=== PATIENT | female | born 1985 | race Caucasian/White ===

== ENCOUNTER 2024-04-28 21:53 | Emergency (ER) | payer BC, OTHER, SELFPAY ==
--- OUTSIDE RECORDS SUMMARY | 2024-04-28 21:55 | XMS_ITS | Clinical Summary ---
Author Organization [facility] Address [address] [place] [address] Care Team Providers Care Audio Narrator Name Role Phone Found, No Pcp MD Primary Care Provider Unavailab le Source Comments You are receiving this document as you are listed as the primary care provider,follow-up provider, or the patient has been referred to you for consultation.This is in compliance with the Medicare and[facility] EHR Incentive Program,which states Providers who transition their patient to another setting of careor provider of care or refers their patient to another provider of care shouldprovide summary care record for each transition of care or referral. [employer] Allergies No known active allergies Medications unknown medication Indications: PN: 10/26/19 07 Active Norgestimate-Eth Estradiol (AKA ORTHO-CYCLEN) 0.25-35 MG-MCG tabletIndications :General counseling for initiation of other contraceptive measures Take 1 tablet by mouth daily (every 24 hours). Follow package directions Indications: CONTRACEPTION 84 tablet 4 10/22/19 11 Active clindamycin (AKA CLEOCIN T) 1 % lotionIndications :Acne Apply topically 2 times daily. 60 mL 11 10/22/19 11 Active Norgestimate-Eth Estradiol (AKA ORTHO-CYCLEN) 0.25-35 MG-MCG tablet Take 1 tablet by mouth daily (every 24 hours). 84 tablet 0 02/03/20 15 Active Additional Information Patient not taking.Reported on 03/04/2020 Norgestimate-Ethi nyl Estradiol (ORTHO TRI-CYCLEN LO) 0.18/0.215/0.25 MG-25 MCG tablet Take 1 tablet by mouth daily (every 24 hours). LW Addl Instr:Follow package directions. 84 3 08/11/19 06 006 Discontin ued(Thera py completed ) Active Problems Problem Noted Date Diagnosed Date Morbid obesity 03/03/2014 Immunizations Immunization Administration Dates Next Due 4vHPV (Gardasil) 07/07/2009 DTP 08/08/1988, 6,03/15/1984,1983,1983 HepB Adult (Engerix-B, 20+ y rs, 3 dose series) 06/04/1996,11/29/1995,06/19/1995 MMR 06/19/1995,02/25/1985 OPV, Trivalent (Orimune or tOPV) 989,07/11/1985,01/26/1984,1983 Td 11/29/1995 Family History Medical History Relation Name Comments Diabetes Father High Cholesterol Mother Diabetes Brother Relation Name Status Comments Father Alive Mother Alive Brother Alive Son Alive Social History Tobacco Use Types Packs/Day Years Used Date Smoking Tobacco: Never Smokeless Tobacco: Never Alcohol Use Standard Drinks/Week Comments Yes 1 (1 standard drink = 0.6 oz pure alcohol) Alcoholic Drinks/day: Freq:2-4/Month ; Comments No Sex and Gender Information Value Date Recorded Sex Assigned at Not on file Legal Sex Female 7:17 AM CDT Gender Identity Not on file Sexual Orientation Not on file 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 Not on file Not on file Not on file Last Filed Vital Signs Vital Sign Reading Time Taken Comments Blood Pressure 141/90 04/16/2023 8:36 AM HATCHERY HELPER Pulse 86 04/16/2023 8:36 AM HATCHERY HELPER Temperature 36.9 C (98.5 F) 04/16/2023 8:36 AM HATCHERY HELPER Respiratory Rate 16 04/16/2023 8:36 AM HATCHERY HELPER Oxygen Saturation 100% 04/16/2023 8:36 AM HATCHERY HELPER Inhaled Oxygen Concentration - - Weight 134.7 kg (297 lb) 04/06/2020 11:41 AM HATCHERY HELPER Height 177.8 cm (5' 10) 04/06/2020 11:41 AM HATCHERY HELPER Body Mass Index 42.62 04/06/2020 11:41 AM HATCHERY HELPER Plan of Treatment Health Maintenance Due Date Last Done Comments Hep C Screening (Preventive Services) 1983 Mammogram 1983 Adult Preventive Visit 09/06/2001 HPV Vaccine (2 - 3-dose series) 08/04/2009 07/07/2009 Cervical Cancer Screening Due 03/04/2014 03/03/2014, 07/07/2009, 08/21/2007, Additional history exists COVID-19 Vaccine ( season) 2023 Influenza (#1) 2023 12/27/2017, 100 02/2016, 11/26/2015, Additional history exists DTaP/Tdap/Td (9 - Tdap) 09/23/2025 09/24/19 16, 11/29/1995, 11/29/1995, Additional history exists Zoster/Shingles (1 of 2) 09/06/2033 IPV (Polio) Completed 09/27/1994, 07/27, 07/11/1985, Additional history exists HepB Completed 06/04/1996, 04/1995, 06/19/1995 HIV Screening (Preventive Services) Completed 01/30/2006 HepA Aged Out No longer eligi ble based on patient's age to complete this topic Hib Aged Out No longer eligi ble based on patient's age to complete this topic MCV4 Aged Out No longer eligi ble based on patient's age to complete this topic Meningococcal B Aged Out No longer el igible based on patient's age to complete this topic Pneumococcal Aged Out No longer eligi ble based on patient's age to complete this topic Procedures Procedure Name Priority Date/Time Associated Diagnosis Comments ANATOMICAL PATH LIQUID BASED Routine 03/03/2014 8:42 AM HATCHERY HELPER HIV ANTIBODY Routine 01/30/2006 3:05 PM HATCHERY HELPER from Last 3 Months or Most Recently Relevant to Health Maintenance Results * Pap Smear (03/03/2014 8:42 AM HATCHERY HELPER) 03/03/2014 8:42 AM HATCHERY HELPER Narrative HP CONVERSION - 03/05/2014 11:09 AM HATCHERY HELPER Performed at [facility], [address] [place] [id number] FINAL GYNECOLOGICAL CYTOLOGY REPORT Pathology #: [id number] Date Obtained: 03/03/2014 Date Received: 03/04/2014 INTERPRETATION/RESULTS: Negative for Intraepithelial Lesion or Malignancy. SPECIMEN ADEQUACY: Satisfactory for Evaluation. No endocervical cells/transformation zone component present. Verified on 03/05/2014 by LINK BOSCH(ASCP) (electronic signature) CLINICAL NOTES: Abnormal bleeding: No, LMP: 02/09/14, Hormonal TX: No, Other TX: LEEP 2006 LIQUID BASED PAP SMEAR SPECIMEN TYPE: CERVICAL & HPV REGARDLESS OF PAP RESULT PLEASE NOTE: The pap smear is a screening test designed to aid in the detection of cervical cancer and its precursor lesions. It is not a diagnostic procedure and should not be used as the sole means of detecting cervical cancer. Both false-positive and false-negative reports may occur. End of Report Agatha Kevin PA-C LAB_1 Final Resu lt HP CONVERSION * HIV Antibody (01/30/2006 3:05 PM HATCHERY HELPER) Pathologist [facility] HIV 1/HIV 2 Non Reac Non Reac HP CONVERSION 01/30/2006 3:05 PM HATCHERY HELPER Cristina Preciado LAB_1 Final Result HP CONVERSION from Last 3 Months or Most Recently Relevant to Health Maintenance Insurance BC OUT OF STATE [facility] [address] Care Teams Audio Narrator Relationship Specialty Start Date End Date Found, No Pcp, [address] [place] [address] PCP - General 09/24/18
[2024-04-28 21:56] VITALS: BP 169/92; PULSE 103; RESP 18; TEMP 36.9; O2SAT 99; BMI 43.0
--- OUTSIDE RECORDS SUMMARY | 2024-04-28 22:54 | XMS_ITS | Patient Health Record ---
Author Organization [facility] Address [address] [place] [address] Care Team Providers Care Precision Machine Operator Name Role Phone Jacquie Lang Primary Care Provider [phone] Allergies No Known Allergies Reason For Referral No Information Medications Medication SIG (Take, Route, Frequency, Duration) Notes Start Date End Date Status Turmeric Active Vitamin D Active NuvaRing Active EluRyng 0.12-0.015 MG/24HR _insert 1 RIN G VAGINALLY DIRECTED. REMOVE AFTER 3 WEEKS & WAIT 7 DAYS BEFORE INSERTING A NEW RING for 28 Active Social History Tobacco Use: Social History Observation Description Date Details (start date - stop date) Never Smoker NA - NA Tobacco Use/Smoking Question Answer Notes Are you a nonsmoker Alcohol Screen (Audit-C) Question Answer Notes Did you have a drink containing alcohol in the p ast year? No Points 0 Interpretation Negative Problems Problem Type SNOMED Code ICD Code Onset Dates Problem Status W/U Status Risk Notes Problem [id number] Adult BMI 38.0-38.9 kg/sq m (Z68.38) Active confirmed Plan Of Treatment No Information Insurance Providers Payer Name Payer Address Payer Phone Subscriber Number Group Number Insured Name Patient Relationship to Insured Coverage Start Date Coverage End Date BCBS - (Client Bill) [address] [place] [address] [id number] Shlomo Castanon Mary Anne Self - patient is the insured (Ins Bill) [address] [place], [place] [id number] Shlomo Lg Mary Anne Self - patient is the insured Medical (General) History Medical History History ICD Code Chicken Pox Surgical History Surgery Date(Month/Year) [facility] 2006
--- OUTSIDE RECORDS SUMMARY | 2024-04-28 22:54 | XMS_ITS | Clinical Summary ---
Author Organization [facility] Address [address] [place] [address] Care Team Providers Care Rocket Engine Component Mechanic Name Role Phone Pcp, No Primary Care Provider Unavailabl e Allergies Active Allergy Reactions Criticality Noted Date Comments Nickel Rash 04/15/2015 Medications cholecalciferol (VITAMIN D) 1,000 unit capsule Take 1 capsule by mouth once daily. 0 6 Active multivitamin-mine rals therapeutic tablet Take 1 tablet by mouth once daily. Active magnesium oxide (MAG-OX 400) 400 mg tablet Take 200-400 mg by mouth once daily. Active WalkerIndications :Acute bilateral low back pain with bilateral sciatica Rolling Walker for home use. 1 Device 8 Active etonogestrel-ethi nyl estradiol (NUVARING) vaginal ringIndications:E ncounter for initial prescription of vaginal ring hormonal contraceptive INSERT 1 RING VAGINALLY AND LEAVE IN PLACE FOR 3 CONSECUTIVE WEEKS, REMOVE 1WK, REPEAT 3 ring 9 Active calcium carbonate (CALTRATE) 600 mg calcium (1,500 mg) tablet Take 600 mg by mouth 2 times daily with meals. Active Active Problems Problem Noted Date Diagnosed Date Morbid obesity with BMI of 40.0-44.9, adult 02/26 Acute bilateral low back pain with bilateral sci atica 03/08/2017 Cervical high risk HPV (human papillomavirus) te st positive 01/05/2016 Overview (01/10/2018): 2007 LEEP 01/05/2016 NIL/HPV+, HPV 16/18 Negative 08/23/2016 [place]: Benign ECC 12/27/2017 NIL/HPV Negative ASCCP recommends: History of CIN2 - CIN3: Pap and HPV every 3 years for 20 years. Plan: Pap/HPV due 12/2020 Premature rupture of membran es with onset of labor within 24 hours of rupture 11/25/2015 (normal spontaneous vaginal delivery) 11/24 Obesity affecting in third trimester 0 05/21/2015 care, subsequent 04/15/2015 Overview (11/18/2015): Call [facility] Pitocin induction scheduled for 12/01/15 BMI >30 & first degree relative Type 2 diabetic (mother) Abnormal Pap X 1 - LEEP X 1 2006 Chlamydia X 1 - Treated 2005 Genetic testing: CF, Quad, FTS will advise office of decision. Influenza vaccine accepted this season. Obesity, unspecified 08/31/2006 Resolved Problems Problem Noted Date Diagnosed Date Resolved Date History of loop electrosurgi fawn excision procedure (LEEP) of cervix affecting in third trimester 05/21/2015 01/10/2018 Disorder of stomach function and feeding problems in 09/02/2006 04/15/2015 Supervision of normal first 08/31/2006 09/02/2006 Normal delivery 08/31/2006 09/02/2006 Immunizations Name Administration Dates Next Due DT (Age < 7 years) 11/29/1995 DTP 08/08/1988, 6,03/15/1984,01/26/1984, DTaP 09/27/1994 Hepatitis B (Adult) 06/04/1996,11/29/1995,1995 Human Papilloma Virus Vaccine 07/07/2009 Influenza Virus, Unspecified 11/26/2016 Influenza, IIV4 12/27/2017,11/26/2015,04/15/2015 MMR 06/19/1995,02/25/1985 Oral Polio Vaccine 09/27/1994, 9,07/11/1985,01/26/1984, Td (Age >=7 Years) 11/29/1995 Tdap 09/24/2015 Family History Medical History Relation Name Comments Good Health Brother Diabetes Father Heart Disease Father [place] Other Maternal Grandfather Other Maternal Grandmother Good Health Mother Other Paternal Grandfather Good Health Paternal Grandmother Good Health Son Relation Name Status Comments Brother Alive Father Alive Maternal Grandfather Maternal Grandmother Mother Alive Paternal Grandfather Alive Paternal Grandmother Alive Son Alive Social History Tobacco Use Types Packs/Day Years Used Date Smoking Tobacco: Never Smokeless Tobacco: Never Tobacco Cessation:Counseling Given: Yes Alcohol Use Standard Drinks/Week Comments Yes 0 (1 standard drink = 0.6 oz pur e alcohol) 1 drink a month Comments No Sex and Gender Information Value Date Recorded Sex Assigned at Not on file Legal Sex Female 7:19 AM TANK SETTER Gender Identity Not on file Sexual Orientation Not on file Occupation Industry Job Start Date Job End Date Not on file Not on file Not on file Not on file Obstetrics History Para Term AB IAB SAB Ectopic Multiple Livin g Live Births 2 2 2 0 0 0 0 0 0 2 2 Date Outcome GA Total Labor Labor/2nd/3rd Weight Sex Type Anes PTL Magda A1 A5 Name Clin 2006 Term 42w 0d 3.52 kg (7 lb 12 oz) M Vag Epidur al N Livin g Anil Complications:None 2015 Term 38w 0d 3.8 kg (8 lb 5.9 oz) M Vag Epidur al N Livin g 8 10 [place], BB FATUMA Ros[place] y Complications:None Delivery Location:[facility] Last Filed Vital Signs Vital Sign Reading Time Taken Comments Blood Pressure 149/79 10/18/2019 12:59 AM CDT Pulse 76 10/18/2019 12:59 AM CDT Temperature 36.4 C (97.5 F) 10/17/2019 10:20 PM CDT Respiratory Rate 16 10/18/2019 12:59 AM CDT Oxygen Saturation 96% 10/18/2019 12:59 AM CDT Inhaled Oxygen Concentration - - Weight 149.7 kg (330 lb) 10/17/2019 10:29 PM CDT Height 177.8 cm (5' 10) 10/17/2019 10:29 PM CDT Body Mass Index 47.35 10/17/2019 10:29 PM CDT Plan of Treatment Health Maintenance Due Date Last Done Comments Hepatitis C screening for age 18-79 09/06/2001 BMI (ht and wt on same day) for age 18+ 12/27/2018 12/27/2017, 08/23/2016, 11/24/2015, Additional history exists Depression screening for age 12+ 12/27/2018 12/27/2017, 08/23/2016 Pap test for age 21-65 12/27/2020 8, 12/27/2017, 01/05/2016, Additional history exists COVID-19 vaccine series ( season) 2023 Influenza for age 9-49 10/28/2023 8, 11/26/2016, 11/26/2015, Additional history exists Tetanus booster 09/23/2025 09/24/2015, 11/29/1995 HIV for age 15-65 Completed 04/15/2015 Tdap Completed 09/24/2015 Pneumococcal series for age 6-49 Aged Out No longer eligible based on patient's age to complete this topic Procedures Procedure Name Priority Date/Time Associated Diagnosis Comments TRANSIT DRIVER THIN PREP PAP SCREEN IMAGED Routine 12/27/2017 9:00 AM CDT Screening for cervical cancer ANTI HIV 1/2 Routine 04/15/2015 12:16 PM TANK SETTER care, subsequent , unspecified trimester from Last 3 Months or Most Recently Relevant to Health Maintenance Results * TRANSIT DRIVER THIN PREP PAP SCREEN IMAGED (12/27/2017 9:00 AM CDT) Case Report Gynecologic Cytology Report Case: [id number] Authorizing Provider: Caprice Farooq DO Collected: 12/27/2017 0900 Ordering Location: [facility] Received: 12/27/2017 [facility] First Screen: Reba Franco Rescreen: iNssa Pandya Specimen: TRANSIT DRIVER ThinPrep Vial Screening, Cervical 01/08/2018 12:48 PM TANK SETTER [facility] ENTRAL LABORATORY INTERPRETATION/ RESULT NEGATIVE FOR INTRAEPITHELIAL LESION OR MALIGNANCY (NIL) (none) 01/08/2018 12:48 PM [facility]ANK [facility]TER [facility] IMEN ADEQUACY Satisfactory for evaluation Endocervical component present 01/08/2018 12:48 PM TANK SETTER [facility] HPV REQUEST HPV and PAP 01/08/2018 12:48 PM TANK SETTER [facility] Date of LMP 12/02/17 01/08/2018 12:48 PM TANK SETTER [facility] Last Pap Date 01/05/16 01/08/2018 12:48 PM TANK SETTER [facility] Last Pap Result NIL 8 12:48 PM TANK SETTER [facility] Abnormal Pap or [place] Bx in last 5 years Yes 01/08/2018 12:48 PM TANK SETTER [facility] Menstrual Status Regular Periods 01/08/2018 12:48 PM TANK SETTER [facility] [place] Bx Done Today No 01/08/2018 12:48 PM TANK SETTER [facility] Additional Information None given 01/08/2018 12:48 PM TANK SETTER [facility] Automated Review Successful 01/08/2018 12:48 PM TANK SETTER [facility] Comment:Specimen processed s uccessfully by automated quality officer device, ThinPrep Imaging System, [employer] ANCILLARY TESTING TRANSIT DRIVER HPV Ordered, Please see separate report 01/08/2018 12:48 PM TANK SETTER [facility] Note The pap test is a screening technique, not a diagnostic procedure. It is used primarily to screen for squamous cancers and precursor lesions. Published studies have shown that it is subject to both false negative and false positive results. The pap test should not be used as the sole means to diagnose or exclude pre-malignant and malignant lesions. Cytology is screened and interpreted at [facility], Central Laboratory - [address], [place] [address] and [facility] - [address]; [place] [address] and [facility] - [address]; [place] [address] and [facility] [address]; [place] [address] 01/08/2018 12:48 PM TANK SETTER [facility] EN[facility] Other (Cervical) Non-Blood / Unknown 12/27/2017 9:00 AM CDT 12/27/2017 11:56 AM CDT Caprice Farooq DO PATHOLOGY/CYTOLOGY Final Re sult [facility] [address] [place] [address], [place] * ANTI HIV 1/2 (04/15/2015 12:16 PM TANK SETTER) HIV-1/HIV-2 ANTIBODY Non-Reacti ve Non-Reacti ve 04/15/2015 7:58 PM TANK SETTER [facility] TRAL [facility]ORAT[facility] Blood specimen (specimen) BLOOD SPECIMEN / Unknown Venipuncture / Unknown 04/15/2015 12:16 PM TANK SETTER 04/15/2015 12:16 PM TANK SETTER Narrative [facility] - 04/15/2015 7:58 PM TANK SETTER HIV-1 p24 and HIV-1/HIV-2 Ab not detected Caprice Farooq DO SEND OUTS Final Resul t [facility] [address] [place] [address], from Last 3 Months or Most Recently Relevant to Health Maintenance [place] [address] [facility] * Guarantor: [employer] Account Type Relation to Patient Date of Phone Billing Address Occ [employer] [address] [employer] [address] [address] [place] [address] Advance Directives * Full Code (Latest Code Status on File) Date Activated Date Inactivated Comments 03/08/2017 8:47 PM 03/10/2017 5:47 PM * Full Code Date Activated Date Inactivated Comments 11/25/2015 9:23 AM 11/26/2015 4:18 PM * Full Code Date Activated Date Inactivated Comments 11/24/2015 8:13 PM 11/25/2015 9:23 AM * Full Code Date Activated Date Inactivated Comments 11/24/2015 7:44 PM 11/24/2015 8:13 PM * Full Code Date Activated Date Inactivated Comments 08/31/2006 9:21 AM 09/02/2006 4:24 PM Care Teams Rocket Engine Component Mechanic Relationship Specialty Start Date End Date Pcp, No . PCP - General 03/08/17
--- NOTE | 2024-04-28 23:06 | ED.CHESTPAIN ---
HPI - Chest Pain General Chief Complaint: Chest Pain Stated Complaint: Tightness in chest Time Seen by Provider: 04/28/24 22:01 History of Present Illness HPI narrative: This 38-year-old female comes in reporting some episodes of chest tightness on and off over the past week or so. She states that this symptoms seem to arrives more when she is laying down or at rest. She does not report any nausea, vomiting, lightheadedness, shortness of breath, diaphoresis, or exercise intolerance. In fact she has been exercising more lately and tolerates this well. She has a father who was a smoker and did have a myocardial infarction at age 60. She does not have any other cardiac risk factors except for obesity. Related Data Home Medications ?Medication ?Instructions ?Recorded ?Confirmed No Known Home Medications 04/28/24 04/28/24 Allergies Allergy/AdvReac Type Severity Reaction Status Date / Time No Known Drug Allergies Allergy Verified 03/01/24 11:20 Review of Systems Status of ROS Reports: 10 or more systems reviewed and unremarkable except as noted in History and below Narrative Constitutional: No fevers, no weight gain or loss. Eyes: No discharge. No vision changes. HENT: No congestion, no sore throat, no ear pain. Cardiovascular: Occasional palpitations. Respiratory: No shortness of breath, no wheezes, no cough. Gastrointestinal: No abdominal pain, no vomiting, no diarrhea. Genitourinary: No dysuria, no hematuria. Musculoskeletal: Normal range of motion. Skin: No rashes, no pruritis. Neurological: No dizziness, weakness, sensory change, speech change. Endo/Heme/Allergies: No bruising or bleeding. No polydipsia. Pysch: no suicidality, no anxiety, no insomnia. All other systems reviewed and are negative. [facility] Medical History (Updated 04/29/24 @ 00:03 by Fuad Narayan MD) Tonsillitis ?J03.90 - Acute tonsillitis, unspecified (ICD-10) Social History Smoking Status: Never smoker Do you use any of these nicotine containing products: None How often do you have a drink containing alcohol: never AUDIT-C Alcohol total score: 0 Non-prescribed substance use: denies use Exam Narrative Exam Narrative: Constitutional: Well-developed, well-nourished, no acute distress. HEENT: Normocephalic, atraumatic. Neck: Normal range of motion. Nontender. Supple. Heart: Regular. No murmurs. Normal rate. Intact distal pulses. Lungs: Clear to auscultation. No chest discomfort. No wheezes, rhonchi, or rales. Abdomen: Normal bowel sounds. Nontender. No rebound tenderness. Genitalia: Deferred. Back: No midline tenderness. Normal range of motion. Extremities: Normal range of motion. No injury. Skin: Intact. No rash. Warm. No erythema or pallor. Neurologic: No altered sensation. No weakness. Alert and oriented. Psychiatric: No suicidality. No anxiety or depression. No insomnia. Nursing notes and vitals signs are reviewed. Const Vital Signs, click to edit/add: Vital Signs - 24 hr 04/28/24 21:56 04/28/24 23:10 Temperature 98.5 F Pulse Rate [Pulse Oximeter] 103 H 77 Respiratory Rate 18 16 Blood Pressure [Left Forearm] 169/92 H 145/88 H Pulse Oximetry 99 100 Oxygen Delivery Method Room Air Room Air Course Vital Signs Vital signs: Initial Vital Signs Temperature 98.5 F 04/28/24 21:56 Temperature Source Temporal Artery Scan 04/28/24 21:56 Pulse Rate 103 H 04/28/24 21:56 Respiratory Rate 18 04/28/24 21:56 Blood Pressure 169/92 H 04/28/24 21:56 Blood Pressure Mean 117 H 04/28/24 21:56 Blood Pressure Position Sitting 04/28/24 21:56 Pulse Oximetry 99 04/28/24 21:56 Oxygen Delivery Method Room Air 04/28/24 21:56 Vital Signs Temperature 98.5 F 04/28/24 21:56 Pulse Rate 103 H 04/28/24 21:56 Respiratory Rate 18 04/28/24 21:56 Blood Pressure 169/92 H 04/28/24 21:56 Pulse Oximetry 99 04/28/24 21:56 Oxygen Delivery Method Room Air 04/28/24 21:56 Temperature 98.5 F 04/28/24 21:56 Pulse Rate 77 04/28/24 23:10 Respiratory Rate 16 04/28/24 23:10 Blood Pressure 145/88 H 04/28/24 23:10 Pulse Oximetry 100 04/28/24 23:10 Oxygen Delivery Method Room Air 04/28/24 23:10 MDM - Chest Pain MDM Narrative Medical decision making narrative: This patient comes in reporting some chest tightness episodes. These are not related to exertion. She is not exhibiting suspicious symptoms for a pulmonary or cardiac cause for her discomfort. She has good exercise tolerance and in fact has begun exercising again. She is tolerating this well and yet her discomfort may be related to this new activity. EKG and lab results today returned with reassuring findings. The patient is pleased with these results and is okay to be discharged home. Lab Data Labs: Lab Results 04/28/24 Range/Units 23:10 WBC 7.87 (4.50-11.00) K/uL RBC 4.31 (4.00-5.20) m/uL Hgb 13.0 (12.0-16.0) gm/dL Hct 39.4 (33.0-51.0) % MCV 91 (80-100) fL MCH 30 (26-34) pg MCHC 33 (32-36) gm/dL RDW Coeff of Benny 12.3 (11.5-15.5) % Plt Count 294 (140-440) K/uL Neut % (Auto) 56.7 (42.0-72.0) % Lymph % (Auto) 28.6 (20-44) % [place] % (Auto) 10.4 (0.0-11.0) % Eos % (Auto) 3.6 (0.0-7.0) % Baso % (Auto) 0.6 (0.0-3.0) % Neut # (Auto) 4.46 (1.7-7.0) K/uL Lymph # (Auto) 2.25 (0.90-2.90) K/uL [place] # (Auto) 0.80 (0.00-0.90) K/UL Eos # (Auto) 0.28 (0.00-0.50) K/uL Baso # (Auto) 0.05 (0.00-0.30) K/uL Abs Immat Gran (auto) 0.01 (0.00-0.30) K/uL Imm/Tot Granulo (auto) 0.1 % Sodium 136 (135-149) mmol/L Potassium 3.9 (3.6-5.1) mmol/L Chloride 102 (96-114) mmol/L Carbon Dioxide 24 (20-32) mmol/L Anion Gap 10 (7-15) mEq/L BUN 17 (5-24) mg/dL Creatinine 0.7 (0.5-1.5) mg/dL Estimated Creat Clear 115.53 Estimated GFR 112 ml/min Glucose 125 H (60-115) mg/dL Calcium 9.6 (8.4-10.6) mg/dL Troponin I < 0.01 L (0.01-0.04) ng/mL ECG Data Attestation: I personally reviewed and interpreted this ECG as follows: Interpretation: Normal sinus rhythm. Rate is 90 beats per minute. There are no ST or T-wave abnormalities. Discharge Plan Discharge Clinical Impression: Atypical chest pain Patient Disposition: Home, Self-Care Condition: Stable Additional Instructions: Continue current plans. Activity as tolerated. Use [id number] medicines as needed and directed. Follow up with MD return if worsening. Prescriptions: No Action No Known Home Medications Follow Up/Referrals: Provider,Not a Local [Primary Care Provider] - Stand Alone Forms: [employer] Info Instructions
[2024-04-28 23:10] VITALS: BP 145/88; PULSE 77; RESP 16; O2SAT 100
[2024-04-28 23:28] LABS: Basophils Absolute Auto 0.05 K/uL (0.00-0.30); Basophils Percent Auto 0.6 % (0.0-3.0); Eosinophils Absolute Auto 0.28 K/uL (0.00-0.50); Eosinophils Percent Auto 3.6 % (0.0-7.0); Hematocrit 39.4 % (33.0-51.0); Immature Granulocytes Abs Auto 0.01 K/uL (0.00-0.30); Immature Granulocytes Pct Auto 0.1 %; Lymphocytes Absolute Auto 2.25 K/uL (0.90-2.90); Lymphocytes Percent Auto 28.6 % (20-44); Mean Corpuscular HGB Conc 33 gm/dL (32-36); Mean Corpuscular Hemoglobin 30 pg (26-34); Mean Corpuscular Volume 91 fL (80-100); Monocytes Percent Auto 10.4 % (0.0-11.0); Neutrophils Absolute Auto 4.46 K/uL (1.7-7.0); Neutrophils Percent Auto 56.7 % (42.0-72.0); Platelet Count* 294 K/uL (140-440); RDW Coefficient of Variation % 12.3 % (11.5-15.5); Red Blood Count 4.31 m/uL (4.00-5.20); White Blood Count* 7.87 K/uL (4.50-11.00)
[2024-04-28 23:30] LABS: Slide Review Reflex No
[2024-04-28 23:42] LABS: Chloride* 102 mmol/L (96-114); Potassium* 3.9 mmol/L (3.6-5.1); Sodium* 136 mmol/L (135-149)
[2024-04-28 23:45] LABS: Anion Gap 10 mEq/L (7-15); Blood Urea Nitrogen* 17 mg/dL (5-24); Carbon Dioxide* 24 mmol/L (20-32); Creatinine* 0.7 mg/dL (0.5-1.5); Est. Creatinine Clearance* 115.53; Estimated Glomerular Filt Rate 112 ml/min
[2024-04-28 23:46] LABS: Calcium* 9.6 mg/dL (8.4-10.6); Glucose* 125 mg/dL (60-115)
[2024-04-28 23:58] LABS: Troponin I* < 0.01 ng/mL (0.01-0.04)
== END 2024-04-29 00:12 | disposition home or self-care (01) ==
PROVIDERS: Emergency Provider Emergency Medicine Emergency Medical Services
DX: R07.89 Other chest pain (principal)
CPT/HCPCS: 36415; 80048; 84484; 85025; 93005; 99284